=== PATIENT | female | born 2000 | race Caucasian/White ===

== ENCOUNTER 2019-09-30 23:35 | Emergency (ER) | payer BC ==
[2019-09-30 23:54] VITALS: BP 115/66; PULSE 65; TEMP 97.9; BMI 18.5
--- NOTE | 2019-10-01 | PDOC ---
History of Present Illness - General Chief Complaint: Lightheaded Stated Complaint: POOR PO INTAKE Time Seen by Provider: 09/30/19 23:52 History Source: Patient Exam Limitations: No Limitations - History of Present Illness Initial Comments: 09/30/19 23:53 This is a 19-year-old female who comes in with from an eating disorder clinic for evaluation. Patient was feeling dizzy earlier so staff is concerned that she may be dehydrated and sent her in for IV hydration. Otherwise patient has no complaints denies any fevers, chills, nausea vomiting diarrhea. Allergies: as per nursing notes Past Medical History: none Social history: Lives with family. No smoking. No alcohol. No illicit drugs. Surgical history: None General: No fevers or chills, no weakness, no weight loss HEENT: No change in vision. No sore throat,. No ear pain CardioVascular: no chest discomfort. No shortness of breath Respiratory:No cough, or wheezing. Gastrointestinal: no nausea, vomiting, diarrhea or constipation, No rectal bleeding Genitourinary: No dysuria, hematuria, or frequency Musculoskeletal: No joint or muscle pain or swelling Neurologic: No headache, vertigo, dizziness or loss of consciousness Psychiatric: nor depression Skin: No rashes or easy bruising Endocrine: no increased thirst or abnormal weight change Allergic: no skin or latex allergy All other systems reviewed and normal GENERAL: The patient is awake, alert, and fully oriented, in no acute distress. HEENT:Head is normal with no signs of trauma. Eyes: Pupils equal, round and reactive to light, Ears, and Throat are normal. Neck is supple. No Lymphadenopathy. EXTREMITIES:atraumatic, Normal range of motion, no edema. NEUROLOGICAL: Normal speech, normal gait. PSYCH: Normal mood, normal affect. SKIN: Warm, Dry, normal turgor, no rashes or lesions noted. Assessment and plan: This is a 19-year-old anorexic female who was started from eating disorder clinic for possible dehydration patient given a liter of fluid and discharged back to the clinic. Past History - Past Medical History Allergies/Adverse Reactions: Allergies Allergy/AdvReac Type Severity Reaction Status Date / Time amoxicillin Allergy Verified 09/30/19 23:38 aripiprazole Allergy Verified 09/30/19 23:38 azithromycin Allergy Verified 09/30/19 23:38 Home Medications: Ambulatory Orders Naltrexone HCl 50 mg PO HS 09/30/19 Discharge - Discharge Information Problems reviewed: Yes Clinical Impression/Diagnosis: Eating disorder Qualifiers: Eating disorder type: unspecified eating disorder Qualified Code(s): F50.9 - Eating disorder, unspecified Condition: Stable Disposition: HOME - Admission No - Follow up/Referral Referrals: ON STAFF,NOT [Primary Care Provider] - - Patient Discharge Instructions Additional Instructions: Return to the emergency department immediately with ANY new, persistent or worsening symptoms. Continue any medications as previously prescribed by your physician. You should follow up with your primary doctor as soon as possible regarding today's emergency department visit. . Please make sure your doctor reviews the results of your emergency evaluation. Thank you for coming to the Emergency Department today for your care. It was a pleasure to see you today. Please note that your evaluation is INCOMPLETE until you follow-up with your doctor. - Post Discharge Activity
== END 2019-10-01 00:46 | disposition home or self-care (01) ==
LOC: FER 23:35
DX: F50.9 Eating disorder, unspecified (principal)
CPT/HCPCS: 99282-25